=== PATIENT | male | born 1975 | race Caucasian/White ===

== ENCOUNTER 2019-03-02 10:56 | Day surgery (SDC) | payer MEDICAID ==
[2019-02-28 12:51] LABS: Basophils # (auto) 0.1 uL; Eosinophils # (auto) 0.3 uL; Eosinophils % (auto) 3.9 % (0.0-7.0); Hematocrit 40.2 % (41.0-53.0); Hemoglobin 13.8 g/dL (13.5-17.5); Lymphocytes # (auto) 1.9 uL; Lymphocytes % (auto) 22.9 % (10.0-50.0); Mean Corpuscular Hemoglobin 28.7 pg (28.0-32.0); Mean Corpuscular Hgb Conc. 34.4 g/dL (32.0-36.0); Mean Corpuscular Volume 83.5 fL (80.0-100.0); Monocytes # (auto) 0.6 uL; Monocytes % (auto) 7.2 % (0.0-12.0); Neutrophils # (auto) 5.4 uL; Nucleated Red Blood Cells % 0.1 %; Platelet Count (auto) 245 10^3/uL (140-450); Red Blood Cells 4.82 10^6/uL (4.5-5.90); Red Cell Distribution Width 14.2 % (11.8-14.3); White Blood Cell 8.3 10^3/uL (4.4-10.8)
[2019-02-28 13:04] LABS: Urine Bacteria NONE SEEN /hpf (None Seen); Urine Blood Negative /uL (Negative); Urine Hyaline Cast FEW /lpf (0 - 2); Urine Mucus FEW (None Seen); Urine Specific Gravity 1.022 (1.001-1.035); Urine WBC 1 /hpf (0 - 3)
[2019-02-28 13:06] LABS: INR 0.97 (0.9-1.15); Partial Thromboplastin Time 27.8 sec (23.64-32.05)
[2019-02-28 13:46] LABS: Albumin 3.6 g/dL (3.4-5.0); Calcium 8.8 mg/dL (8.5-10.1); Potassium 4.1 mmol/L (3.5-5.1)
[2019-02-28 13:49] LABS: BUN/Creatinine Ratio 12.4; Bilirubin, Total 0.4 mg/dL (0.2-1.0); Total Protein 7.1 g/dL (6.4-8.2)
[~2019-03-02] VITALS: Ht 175.3 cm; Wt 112.0 kg
[~2019-03-02 10:56] MED LIST: ALLO100T PO; AMIT25TA9 PO; ASPI-404 PO; CLON0.1T PO; ERGO2000 PO; FLUT1SPR5; GABA100C9 PO; GEMF600T7 PO; HYDR-4296 PO; IBUP800T24 PO; LOVA10TA54 PO; METO25TA5 PO; MIN25T PO; NIFE90TA30 PO; RAMI10CA38 PO; TIZA2CAP7 PO
[2019-03-02] MEDS ORDERED: BUPIVACAINE HCL 50 ML ONE (12:34)
[2019-03-02] MEDS ORDERED: LIDOCAINE 1% HCL (LOCAL ANESTH.) INJ 20ML MDV ONE (12:34)
[2019-03-02] MEDS ORDERED: POVIDONE IODINE 5% TOPICAL CREAM TOP ONE (12:34)
[2019-03-02] MEDS ORDERED: ceFAZolin 1GM/50ML 100 ML IV ONE (12:50)
[2019-03-02] MEDS ORDERED: TETRACAINE 1% INJ 2 ML VIAL IJ ONE (13:33)
[2019-03-02] MEDS ORDERED: MIDAZOLAM HCL 1MG/1ML-2 ML VIAL ONE (14:04)
[2019-03-02] MEDS ORDERED: fentaNYL CITRATE 100 MCG/2 ML VL ONE (14:04)
[2019-03-02] MEDS ORDERED: PROPOFOL 10 MG/ML 20 ML IV ONE (14:11)
[2019-03-02] MEDS ORDERED: ONDANSETRON HCL 4 MG/2 ML VIAL IV PRN (15:45)
[2019-03-02] MEDS ORDERED: ePHEDrine SULFATE 50 MG/ML AMP IV PRN (15:45)
[2019-03-02] MEDS ORDERED: fentaNYL CITRATE 100 MCG/2 ML VL IV PRN (15:45)
[2019-03-02] MEDS ORDERED: hydrALAZINE HCL 20 MG/ML VL IV PRN (15:45)
[2019-03-02 16:14] VITALS: BP 153/98
[2019-03-10] MEDS ORDERED: HYDR50TA15 PO (17:48)
[2019-03-10] MEDS ORDERED: METO25TA5 PO (17:48)
[2019-03-10] MEDS ORDERED: ALL100T PO (17:48)
[2019-03-10] MEDS ORDERED: CLIN150C PO (17:48)
[2019-03-10] MEDS ORDERED: ERGO20002 PO (17:48)
[2019-03-10] MEDS ORDERED: GEMF600T7 PO (17:48)
[2019-03-10] MEDS ORDERED: NIFE30TA76 PO (17:48)
[2019-03-10] MEDS ORDERED: LEVO750T64 PO (17:48)
[2019-03-10] MEDS ORDERED: AMI25T PO (17:48)
[2019-03-10] MEDS ORDERED: LOVA20TA4 PO (17:48)
[2019-03-10] MEDS ORDERED: ASPI81CH59 PO (17:48)
[2019-03-10] MEDS ORDERED: GAB100C PO (17:48)
[2019-03-10] MEDS ORDERED: ACET500T42 PO (17:48)
== END 2019-03-02 16:55 | disposition home or self-care (01) ==
LOC: SUR 10:56
PROVIDERS: ATTEND Podiatrist
DX: S82.51XA Displaced fracture of medial malleolus of right tibia, initial encounter for closed fracture (principal); S93.491A Sprain of other ligament of right ankle, initial encounter; E11.319 Type 2 diabetes mellitus with unspecified diabetic retinopathy without macular edema; I10 Essential (primary) hypertension; E66.9 Obesity, unspecified; F32.9 Major depressive disorder, single episode, unspecified; Z68.36 Body mass index [BMI] 36.0-36.9, adult; Z88.5 Allergy status to narcotic agent; Z79.899 Other long term (current) drug therapy; Z79.82 Long term (current) use of aspirin; Z88.0 Allergy status to penicillin; X58.XXXA Exposure to other specified factors, initial encounter; Y93.89 Activity, other specified; Y92.89 Other specified places as the place of occurrence of the external cause; Y99.8 Other external cause status
CPT/HCPCS: 27766; 27829; 36415; 73600; 80053; 81001; 82962; 85025; 85610; 85730; 93005; C1713; C1769; J0690; J2001; J2250; J2704; J3010; J3490; 76001